=== PATIENT | female | born 1995 | race American Indian/Alaskan Native ===

== ENCOUNTER 2017-10-01 08:45 | Outpatient (CLI) | payer BC, SELFPAY ==
--- NOTE | 2017-10-04 08:37 | HOLTER_ITS ---
HOLTER MONITOR STUDY DATE OF RECORDING October 01, 2017 DATE OF ANALYSIS October 02, 2017. REFERRAL Herminia Khalil N.P. INDICATIONS Tachycardia. FINDINGS 1. Baseline sinus rhythm, 65-137 beats per minute, average 89 beats per minute. 2. 1 PAC/24 hours, no SVT, no AF. 3. 2 PVC/24 hours, no VT. 4. No pauses. 5. Symptoms - sharp pain with deep breaths, chest tightness x2/x5/x13 minutes, fast heart rate, all episodes with sinus rhythm/sinus tachycardia, 96-126 beats per minute. Vinny Barker M.D. LORENZO/robert T - 10/04/2017
== END 2017-10-01 08:46 ==
PROVIDERS: PCP Nurse Practitioner; Visit Provider Nurse Practitioner
DX: R00.0 Tachycardia, unspecified (principal)
CPT/HCPCS: 93225

== ENCOUNTER 2017-10-02 10:59 | Outpatient (CLI) | payer BC, SELFPAY | END 2017-10-02 11:00 | PROVIDERS: PCP Nurse Practitioner; Visit Provider Nurse Practitioner | DX: R00.0 Tachycardia, unspecified (principal) | CPT/HCPCS: 93226 ==

== ENCOUNTER 2017-10-07 16:11 | Outpatient (CLI) | payer BC, SELFPAY ==
[2017-10-07 16:50] LABS: Absolute Basophil Count 0.05 k/cumm (0.0-0.2); Absolute Eosinophil Count 0.24 k/cumm (0.0-0.7); Absolute Lymphocyte Count 2.09 k/cumm (1.2-3.4); Absolute Monocyte Count 0.49 k/cumm (0.11-0.7); Absolute Neutrophil Count 4.65 k/cumm (1.2-6.7); Basophils % 0.7; Eosinophils % 3.2; HGB 14.1 g/dL (12.0-15.5); Lymphocytes % 27.8; Mean Corp. HGB Concentration 32.8 g/dL (32.0-36.0); Mean Corpuscular Hemoglobin 27.9 pg (27.0-33.0); Monocytes % 6.5; Neutrophils % 61.8; Platelet Count 360 x1000/uL (130-400); RBC 5.06 m/cumm (4.00-5.20); RBC Distribution Width 14.1 % (11.7-14.6); White Blood Cell Count 7.52 k/cumm (4.4-10.8)
[2017-10-07 18:33] LABS: ALT 21 U/L (12-78); AST 15 U/L (15-37); Albumin 3.9 g/dL (3.4-5.0); Alkaline Phosphatase 50 U/L (46-116); Anion Gap 8.8 mmol/L (3-11); BUN 12 mg/dL (7-18); Bilirubin, Total 0.2 mg/dL (0.2-1.0); CO2 28.2 mmol/L (21.0-32.0); CREATININE 0.77 mg/dL (0.55-1.02); Calcium 9.3 mg/dL (8.5-10.1); Chloride 103 mmol/L (98-107); Glucose 80 mg/dL (70-100); Potassium 3.9 mmol/L (3.5-5.1); Sodium 140 mmol/L (136-145); TSH (W/Ref FT4) 0.88 uIU/mL (0.358-3.74); Total Protein 7.4 g/dL (6.4-8.2)
== END 2017-10-07 16:12 ==
PROVIDERS: PCP Nurse Practitioner; Visit Provider Nurse Practitioner
DX: R00.0 Tachycardia, unspecified (principal)
CPT/HCPCS: 36415; 80053; 83735; 84443; 85025

== ENCOUNTER 2018-05-27 17:02 | Outpatient (REF) | payer BC, SELFPAY | END 2018-05-27 17:22 | LOC: NCHCN 17:02 | PROVIDERS: PCP Nurse Practitioner; Visit Provider Nurse Practitioner | DX: N76.0 Acute vaginitis (principal) | CPT/HCPCS: 87480; 87510; 87660 ==